=== PATIENT | male | born 1935 | race Caucasian/White ===

== ENCOUNTER 2019-07-30 20:05 | Emergency (ER) | payer OTHER ==
[~2019-07-30] VITALS: Ht 160 cm; Wt 65.8 kg
[2019-07-30 20:12] VITALS: Ht 160 cm; Wt 65.8 kg
[2019-07-30 23:17] VITALS: BP 134/69
== END 2019-07-30 23:17 | disposition home or self-care (01) ==
LOC: ED 20:05
DX: S01.01XA Laceration without foreign body of scalp, initial encounter (principal); I10 Essential (primary) hypertension; F03.90 Unspecified dementia, unspecified severity, without behavioral disturbance, psychotic disturbance, mood disturbance, and anxiety; W18.30XA Fall on same level, unspecified, initial encounter; Z86.73 Personal history of transient ischemic attack (TIA), and cerebral infarction without residual deficits; Y93.89 Activity, other specified; Y92.89 Other specified places as the place of occurrence of the external cause; Y99.8 Other external cause status
CPT/HCPCS: 90715